=== PATIENT | female | born 1950 | race Caucasian/White ===

== ENCOUNTER → 2016-12-26 | Outpatient (CLI) | payer OTHER ==
[~2016-12-26] VITALS: Ht 157.5 cm; Wt 74.4 kg
[~2016-12-26] MED LIST: ACIPHEX20 MG PO; ADVAIR 250/501 DISK IH; ATORVASTATIN CA40 MG PO; BREO ELLIPTA I1 EACH IH; CIPRO500 MG PO; CLOPIDOGREL75 MG PO; CORTIZONE-10 PL57 GM TP; DOXYCYCLINE MON50 MG PO; HYDROCODON-ACE1 EAC7 PO; LISINOPRIL-HCT1 EACH PO; LO-DOSE ASPIRIN81 M1 PO; METOPROLOL SUCC25 MG PO; NORCO 5/3251 TABLET PO; ONDANSETRON ODT8 MG PO; RABEPRAZOLE SOD20 MG PO; SPIRIVA RESPIMAT4 GM IH; SYMBICORT60 INHALAT IH; TRAMADOL HCL50 MG PO; ZOFRAN ODT8 MG PO
== END | disposition home or self-care (01) ==
LOC: AMB 08:00
PROC: 0FC98ZZ Extirpation of Matter from Common Bile Duct, Via Natural or Artificial Opening Endoscopic (ICD-10-PCS; principal; 2016-12-26)
DX: K80.51 Calculus of bile duct without cholangitis or cholecystitis with obstruction (principal); I10 Essential (primary) hypertension; J44.9 Chronic obstructive pulmonary disease, unspecified; K21.9 Gastro-esophageal reflux disease without esophagitis; M19.90 Unspecified osteoarthritis, unspecified site
CPT/HCPCS: 74330; 87081; 88108; 88305; B4087; C1757; C1769; J0330; J2405; J3010

== ENCOUNTER 2017-01-06 18:32 | Emergency (ER) | payer OTHER ==
[~2017-01-06] VITALS: Ht 160 cm; Wt 76.5 kg
[2017-01-06] MEDS ORDERED: TRAMADOL HCL50 MG PO (21:05)
[2017-01-06 21:15] VITALS: BP 125/68
== END 2017-01-06 21:16 | disposition home or self-care (01) ==
LOC: EME 18:32
DX: S86.812A Strain of other muscle(s) and tendon(s) at lower leg level, left leg, initial encounter (principal); W10.8XXA Fall (on) (from) other stairs and steps, initial encounter
CPT/HCPCS: 73590; 99281; 99284

== ENCOUNTER 2017-02-08 16:57 | Emergency (ER) | payer OTHER ==
[~2017-02-08] VITALS: Ht 160 cm; Wt 76.0 kg
[2017-02-08] MEDS ORDERED: BACTRIM,SEPT1 TABLET PO (18:43)
[2017-02-08 19:11] VITALS: BP 174/67
== END 2017-02-08 19:12 | disposition home or self-care (01) ==
LOC: EME 16:57
DX: S81.812A Laceration without foreign body, left lower leg, initial encounter (principal); Z79.01 Long term (current) use of anticoagulants; W26.8XXA Contact with other sharp object(s), not elsewhere classified, initial encounter; Y92.524 Gas station as the place of occurrence of the external cause; Z88.0 Allergy status to penicillin; Z88.6 Allergy status to analgesic agent
CPT/HCPCS: 99281; 99284

== ENCOUNTER 2017-05-29 20:47 | Emergency (ER) | payer OTHER ==
[~2017-05-29] VITALS: Ht 157.5 cm; Wt 77.9 kg
[~2017-05-29 20:47] MED LIST changes: +BACTRIM,SEPT1 TABLET PO
[2017-05-29 22:02] VITALS: BP 136/58
== END 2017-05-29 22:02 | disposition home or self-care (01) ==
LOC: EXP 20:47 → EME 20:47 → EXP 22:02
DX: S81.811A Laceration without foreign body, right lower leg, initial encounter (principal); V18.4XXA Pedal cycle driver injured in noncollision transport accident in traffic accident, initial encounter; Y93.55 Activity, bike riding; Z79.02 Long term (current) use of antithrombotics/antiplatelets; Z79.82 Long term (current) use of aspirin; Z88.0 Allergy status to penicillin
CPT/HCPCS: 99281; 99284

== ENCOUNTER → 2017-09-06 | Outpatient (CLI) | payer OTHER | END | disposition home or self-care (01) | LOC: CDC 15:41 | DX: Z01.810 Encounter for preprocedural cardiovascular examination (principal); M65.312 Trigger thumb, left thumb | CPT/HCPCS: 93000 ==

== ENCOUNTER 2018-04-10 19:46 | Observation (INO) | payer OTHER ==
[~2018-04-10] VITALS: Ht 157.5 cm; Wt 75.4 kg
[2018-04-10 20:35] LABS: HEMATOCRIT 41.3 % (36.0-46.0); HEMOGLOBIN 13.9 G/DL (11.9-15.5); MCH 31.8 PG (29.0-34.0); MCHC 33.7 G/DL (30.0-36.0); MCV 94.5 FL (83-99); PLATELET COUNT 177 K/uL (156-360); RBC DIS.WIDTH-CV 12.5 % (11.8-14.6); RBC DIS.WIDTH-SD 43.7 % (39-53); RED BLOOD COUNT 4.37 M/uL (3.80-5.20); WHITE BLOOD COUNT 8.3 K/uL (4.1-10.2)
[2018-04-10 20:58] LABS: ALBUMIN 3.8 g/dL (3.2-4.8); CHLORIDE 107 mEq/L (99-109); SODIUM 142 mEq/L (136-147)
[2018-04-10 21:01] LABS: GLUCOSE 129 mg/dL (70-99)
[2018-04-10 21:02] LABS: TOTAL BILIRUBIN 1.8 mg/dL (0.0-1.0)
[2018-04-10 21:04] LABS: ALKALINE PHOSPHATASE 321 IU/L (3-129); CREATININE 1.4 mg/dL (0.6-1.3); GFR ESTIMATE (CALCULATED) 40 mL/min/
[2018-04-10 21:05] LABS: UREA NITROGEN (BUN) 19 mg/dL (9-23)
[2018-04-10 21:06] LABS: AST (GOT) 197 IU/L (2-34); DIRECT BILIRUBIN 1.3 mg/dL (0.0-0.3)
[2018-04-10 21:07] LABS: ALT (GPT) 67 IU/L (3-49)
[2018-04-10 21:34] LABS: LIPASE 43 U/L (1.0-51.0)
[2018-04-10 21:35] LABS: TROP-I INTERPRETATION NEGATIVE; TROPONIN-I < 0.01 ng/mL (0.0-0.30)
[2018-04-10] MEDS ORDERED: SHINGRIX V50 MCG/0.5 IM (22:23)
[2018-04-10] MEDS ORDERED: LIPITOR40 MG PO (22:23)
[2018-04-10 22:49] LABS: APPEARANCE CLEAR ((CLEAR)); BILIRUBIN NEGATIVE; BLOOD NEGATIVE; COLOR YELLOW ((YELLOW)); GLUCOSE (STRIP) NEGATIVE; KETONES NEGATIVE; LEUKOCYTES NEGATIVE; NITRITE NEGATIVE; PROTEIN (STRIP) NEGATIVE
[2018-04-11 01:02] VITALS: BP 120/58
[2018-04-11 02:20] LABS: TROP-I INTERPRETATION NEGATIVE; TROPONIN-I 0.03 ng/mL (0.0-0.30)
[2018-04-11 08:27] VITALS: BP 143/65
[2018-04-11 08:43] LABS: HEMATOCRIT 39.5 % (36.0-46.0); HEMOGLOBIN 13.2 G/DL (11.9-15.5); MCH 31.7 PG (29.0-34.0); MCHC 33.4 G/DL (30.0-36.0); MCV 94.7 FL (83-99); PLATELET COUNT 166 K/uL (156-360); RBC DIS.WIDTH-CV 12.8 % (11.8-14.6); RBC DIS.WIDTH-SD 44.1 % (39-53); RED BLOOD COUNT 4.17 M/uL (3.80-5.20); WHITE BLOOD COUNT 16.2 K/uL (4.1-10.2)
[2018-04-11 09:07] LABS: ALBUMIN 3.4 G/DL (3.2-4.8); ALKALINE PHOSPHATASE 269 IU/L (3-129); ALT (GPT) 73 IU/L (3-49); AST (GOT) 124 IU/L (2-34); CHLORIDE 110 MEQ/L (99-109); CREATININE 1.3 MG/DL (0.6-1.3); DIRECT BILIRUBIN 2.2 mg/dL (0.0-0.3); GFR ESTIMATE (CALCULATED) 43 mL/min/; GLUCOSE 138 mg/dL (70-99); POTASSIUM 3.9 MEQ/L (3.7-5.4); SODIUM 141 MEQ/L (136-147); TOTAL BILIRUBIN 3.1 MG/DL (0.0-1.0); TOTAL PROTEIN 5.9 G/DL (6.4-8.3); UREA NITROGEN (BUN) 17 mg/dL (9-23)
[2018-04-11 09:31] LABS: TROP-I INTERPRETATION NEGATIVE; TROPONIN-I 0.04 ng/mL (0.0-0.30)
[2018-04-11 11:40] VITALS: BP 137/54
[2018-04-11 12:47] LABS: HEMATOCRIT 37.8 % (36.0-46.0); HEMOGLOBIN 12.4 G/DL (11.9-15.5); MCH 31.2 PG (29.0-34.0); MCHC 32.8 G/DL (30.0-36.0); MCV 95.2 FL (83-99); PLATELET COUNT 152 K/uL (156-360); RBC DIS.WIDTH-CV 12.6 % (11.8-14.6); RBC DIS.WIDTH-SD 44.2 % (39-53); RED BLOOD COUNT 3.97 M/uL (3.80-5.20); WHITE BLOOD COUNT 13.6 K/uL (4.1-10.2)
[2018-04-11 13:01] LABS: ALBUMIN 3.1 G/DL (3.2-4.8); ALKALINE PHOSPHATASE 207 IU/L (3-129); ALT (GPT) 68 IU/L (3-49); AST (GOT) 102 IU/L (2-34); CHLORIDE 110 MEQ/L (99-109); CREATININE 1.3 MG/DL (0.6-1.3); GFR ESTIMATE (CALCULATED) 43 mL/min/; GLUCOSE 172 mg/dL (70-99); POTASSIUM 3.8 MEQ/L (3.7-5.4); SODIUM 141 MEQ/L (136-147); TOTAL PROTEIN 5.5 G/DL (6.4-8.3); UREA NITROGEN (BUN) 17 mg/dL (9-23)
[2018-04-11 13:03] LABS: TOTAL BILIRUBIN 2.1 MG/DL (0.0-1.0)
[2018-04-11 15:42] VITALS: BP 128/62
== END 2018-04-11 16:42 | disposition home or self-care (01) ==
LOC: EME 19:46 → 4SOUTH 04-11 00:08 → EDOF 04-11 00:08 → ENRESERV 04-11 00:09 → 4SOUTH 04-11 00:47 → ENPENDDIS 04-11 16:12 → 4SOUTH 04-11 16:42
PROVIDERS: Hospitalist; Physician Assistant; Physician Assistant Medical
DX: R10.13 Epigastric pain (principal); M54.9 Dorsalgia, unspecified; J44.1 Chronic obstructive pulmonary disease with (acute) exacerbation; K21.9 Gastro-esophageal reflux disease without esophagitis; I73.9 Peripheral vascular disease, unspecified; I10 Essential (primary) hypertension; E78.5 Hyperlipidemia, unspecified; F17.210 Nicotine dependence, cigarettes, uncomplicated; G47.30 Sleep apnea, unspecified; Z95.820 Peripheral vascular angioplasty status with implants and grafts; Z88.0 Allergy status to penicillin; Z79.82 Long term (current) use of aspirin; Z88.5 Allergy status to narcotic agent
CPT/HCPCS: 71275; 74174; 80048; 80053; 80076; 81003; 83690; 84484; 85027; 93005; 94640; 99202; G0378; J2405; J3010; J7030; J7512

== ENCOUNTER 2018-05-26 08:38 | Day surgery (SDC) | payer OTHER ==
[~2018-05-26] VITALS: Ht 154.9 cm; Wt 73.0 kg
[~2018-05-26 08:38] MED LIST changes: +LIPITOR40 MG PO; +PANTOPRAZOLE SO40 MG PO; +SHINGRIX V50 MCG/0.5 IM
== END 2018-05-26 16:16 | disposition home or self-care (01) ==
LOC: CATH 08:38
DX: I25.10 Atherosclerotic heart disease of native coronary artery without angina pectoris (principal); J44.9 Chronic obstructive pulmonary disease, unspecified; E78.5 Hyperlipidemia, unspecified; G47.30 Sleep apnea, unspecified; M50.90 Cervical disc disorder, unspecified, unspecified cervical region; I73.9 Peripheral vascular disease, unspecified; Z79.02 Long term (current) use of antithrombotics/antiplatelets; Z79.82 Long term (current) use of aspirin; Z88.0 Allergy status to penicillin
CPT/HCPCS: 93005; C1769; C1887; J1644; J2250; J3010; J7040